=== PATIENT | male | born 1985 | race Native Hawaiian/Other Pacific Islander ===

== ENCOUNTER 2019-04-09 08:31 | Emergency (ER) | payer OTHER ==
[~2019-04-09] VITALS: Ht 177.8 cm; Wt 65.8 kg
[2019-04-09 09:21] LABS: SODIUM 136 mmol/L (136-145)
[2019-04-09 09:24] LABS: PLATELET COUNT 138 K/uL (142-355)
[2019-04-09 09:45] LABS: PARTIAL THROMBOPLASTIN TIME 24.8 SECONDS (24.5-33.6)
[2019-04-09 11:55] VITALS: BP 134/87; TEMP 97.7
== END 2019-04-09 11:55 | disposition home or self-care (01) ==
LOC: ED 08:31
PROVIDERS: Hospitalist
DX: K29.60 Other gastritis without bleeding (principal); R07.89 Other chest pain; R11.2 Nausea with vomiting, unspecified
CPT/HCPCS: 36415; 80053; 80320; 82150; 82550; 83690; 83880; 84484; 85027; 85379; 85610; 85730; 93005; 96374; 99284; J2405; Q9963

== ENCOUNTER 2019-07-30 09:55 | Emergency (ER) | payer OTHER ==
[~2019-07-30] VITALS: Ht 177.8 cm; Wt 65.8 kg
[2019-07-30 10:05] VITALS: BP 125/79; TEMP 98.8
== END 2019-07-30 10:58 | disposition home or self-care (01) ==
LOC: ED 09:55
DX: R50.9 Fever, unspecified (principal)
CPT/HCPCS: 87502; 87651; 99283

== ENCOUNTER 2019-08-10 10:42 | Emergency (ER) | payer OTHER ==
[~2019-08-10] VITALS: Ht 177.8 cm; Wt 65.8 kg
[2019-08-10 11:56] VITALS: BP 140/95; TEMP 99
== END 2019-08-10 11:57 | disposition home or self-care (01) ==
LOC: ED 10:42
DX: J11.1 Influenza due to unidentified influenza virus with other respiratory manifestations (principal); F17.210 Nicotine dependence, cigarettes, uncomplicated; Z03.818 Encounter for observation for suspected exposure to other biological agents ruled out
CPT/HCPCS: 87502; 87635; 87651; 99283; U0002

== ENCOUNTER 2019-11-14 15:26 | Emergency (ER) | payer OTHER ==
[~2019-11-14] VITALS: Ht 177.8 cm; Wt 65.8 kg
[2019-11-14 18:09] LABS: PLATELET COUNT 97 K/uL (142-355)
[2019-11-14 18:26] LABS: POTASSIUM 2.2 mmol/L (3.6-5.2)
[2019-11-14 19:20] VITALS: BP 129/85; TEMP 99.2
== END 2019-11-14 19:20 | disposition home or self-care (01) ==
LOC: ED 15:26
PROVIDERS: Family Medicine
DX: E87.6 Hypokalemia (principal); R11.2 Nausea with vomiting, unspecified
CPT/HCPCS: 36415; 80053; 82150; 83690; 85027; 96360; 99284

== ENCOUNTER 2019-12-24 10:34 | Inpatient (IN) | payer OTHER ==
[~2019-12-24] VITALS: Ht 177.8 cm; Wt 65.3 kg
[2019-12-24] VITALS (13 sets, daily range): BP systolic 95–127; BP diastolic 59–94; TEMP 98.8–102.6; Ht 177.8 cm; Wt 65.3 kg
[2019-12-24 11:24] LABS: PLATELET COUNT 172 K/uL (142-355)
[2019-12-24 11:59] LABS: POTASSIUM 2.4 mmol/L (3.6-5.2)
[2019-12-25] VITALS: BP 100/62; TEMP 98.7
[2019-12-25 04:00] VITALS: BP 120/80; TEMP 101.4
[2019-12-25 06:46] LABS: PLATELET COUNT 131 K/uL (142-355)
[2019-12-25 06:49] LABS: POTASSIUM 2.4 mmol/L (3.6-5.2)
[2019-12-25 08:00] VITALS: BP 101/73; TEMP 98.8
[2019-12-25 11:50] VITALS: BP 120/79; TEMP 98.6
[2019-12-25 16:00] VITALS: BP 126/88; TEMP 100.5
[2019-12-25 20:00] VITALS: BP 129/90; TEMP 99.2
[2019-12-26] VITALS: BP 145/93; TEMP 98.5
[2019-12-26 04:00] VITALS: BP 134/88; TEMP 99.7
[2019-12-26 05:32] LABS: PLATELET COUNT 123 K/uL (142-355)
[2019-12-26 05:35] LABS: POTASSIUM 2.7 mmol/L (3.6-5.2)
[2019-12-26 07:48] VITALS: BP 122/84; TEMP 98.74
[2019-12-26 12:00] VITALS: BP 115/86; TEMP 100.3
[2019-12-26 15:40] LABS: POTASSIUM 3.3 mmol/L (3.6-5.2)
== END 2019-12-26 17:15 | disposition home or self-care (01) | DRG 641 ==
LOC: ED 10:34 → MED/SURG 13:00
PROVIDERS: Internal Medicine Endocrinology, Diabetes & Metabolism
DX: E87.6 Hypokalemia (principal); R11.2 Nausea with vomiting, unspecified; E83.42 Hypomagnesemia; G40.409 Other generalized epilepsy and epileptic syndromes, not intractable, without status epilepticus; E87.1 Hypo-osmolality and hyponatremia; Z72.0 Tobacco use; R79.89 Other specified abnormal findings of blood chemistry; F10.10 Alcohol abuse, uncomplicated
CPT/HCPCS: 36415; 80048; 80053; 81000; 82150; 82550; 82553; 83690; 83735; 84484; 85027; 87635; 93005; 96360; 96365; 96366; 96375; 99284; G2023; J0282; J1650; J1885; J2060; J2405; J2550; J3411; J3475; J3480; J3490; U0003

== ENCOUNTER 2020-06-28 15:28 | Observation (INO) | payer OTHER ==
[~2020-06-28] VITALS: Ht 177.8 cm; Wt 62.2 kg
[~2020-06-28 15:28] MED LIST: B-1100 MG PO; MAGN400T4 PO; POTA20TA4 PO
--- NOTE | 2020-06-28 15:35 | NUR ---
PT TO ROOM 1109 VIA W/C DIRECT ADMIT FROM DR. GUEVARA'S OFFICE. PT NOTED TO HAVE EMESIS BAG WITH MODERATE AMOUNT OF CLEAR FLUID IN THE BAG. PT REPORTS BEING NAUSEATED AND THROWING UP SINCE SATURDAY MORNING. PT REPORTS ALCOHOL USE AND STATES "THE LAST TIME I DRANK WAS SATURDAY" PT ALERT AND ORIENTED X4. NAD NOTED. IV AND LABS OBTAINED AT THIS TIME.
[2020-06-28 17:02] LABS: PLATELET COUNT 171 K/uL (142-355)
[2020-06-28 17:18] LABS: SODIUM 131 mmol/L (136-145)
[2020-06-28 17:22] LABS: POTASSIUM 2.1 mmol/L (3.6-5.2)
--- NOTE | 2020-06-28 17:39 | NUR ---
CRITICAL LABS REPORTED TO DR. GUEVARA, REC'D ORDERS TO OBTAIN AMMONIA LEVEL AND CORRECT ELECTROLYTES.
[2020-06-28 18:09] VITALS: BP 118/91; TEMP 98.7; Ht 177.8 cm; Wt 62.2 kg
[2020-06-28 20:00] VITALS: BP 112/79; TEMP 98.6
[2020-06-29] VITALS (7 sets, daily range): BP systolic 95–110; BP diastolic 61–86; TEMP 98–98.7
[2020-06-29 08:56] LABS: PLATELET COUNT 111 K/uL (142-355)
--- NOTE | 2020-06-29 14:52 | NUR ---
SPOKE TO WILBERT FROM DR CAO OFFICE AT 1448. DR CAO TO CONSULT THIS AFTERNOON.
--- NOTE | 2020-06-29 20:22 | NUR ---
PT IN A HIGH FOWLERS POSITION WITH BED IN LOWEST POSITION WATCHING TV. PT WAS ENCOURAGED TO ASK QUESTIONS AT THIS TIME. PT DENIES ANY PAIN, TENDERNESS, OR DSICOMFORT AT THIS TIME.
--- NOTE | 2020-06-29 20:55 | NUR ---
PER PATIENT'S REQUEST, PROVIDED PATIENT CHICKEN SOUP X2 CANS AND JELLO X2. PATIENT EXPRESSED HIS APPRECIATION FOR SAME. PATIENT CONTINUES TO DENY ANY ABDOMINAL PAIN OR TENDERNESS.
--- NOTE | 2020-06-30 03:07 | NUR ---
PT. SITTING UP IN A HIGH-FOWLERS POSITION WATCHING A MOVIE. PT. DENIES ANY PAIN OR DISCOMFORT AT THIS TIME.
[2020-06-30 04:26] VITALS: BP 111/72; TEMP 98.7
[2020-06-30 04:30] LABS: PLATELET COUNT 77 K/uL (142-355)
[2020-06-30 04:45] LABS: POTASSIUM 2.6 mmol/L (3.6-5.2)
[2020-06-30 08:00] VITALS: BP 108/77; TEMP 98.2
--- NOTE | 2020-06-30 11:18 | NUR ---
LATE ENTRY : 06/29/[address] CAO AT BEDSIDE. TO DISCUSS SURGICAL PROCEDURE PT REFUSES TO HAVE GALL BLADDER REMOVED.
--- NOTE | 2020-06-30 11:24 | NUR ---
DR GUEVARA'S OFFICE IS WORKING ON SURGICAL CONSULT. OUT PATIENT.
[2020-06-30 12:00] VITALS: BP 109/74; TEMP 98
--- NOTE | 2020-06-30 14:30 | NUR ---
DC INSTRUCTIONS EXPLAINED TO PT WHO VERBALIZED UNDERSTANDING. 20G IV TO LW DC WITH TIP INTACT. TELE REMOVED FROM PT. UNABLE TO GET SURVEY TABLET TO WORK.
--- NOTE | 2020-06-30 14:35 | NUR ---
PT LEFT FLOOR VIA WC IN NAD. BELONGINGS SENT HOME WITH PT.
== END 2020-06-30 14:35 | disposition home or self-care (01) ==
LOC: MED/SURG 15:28
PROVIDERS: ADMIT Family Medicine; ATTEND Family Medicine
DX: E86.0 Dehydration (principal); R11.2 Nausea with vomiting, unspecified; B19.20 Unspecified viral hepatitis C without hepatic coma; E83.42 Hypomagnesemia; I47.2 Ventricular tachycardia; E87.6 Hypokalemia; M62.82 Rhabdomyolysis; F10.20 Alcohol dependence, uncomplicated; E87.2 Acidosis; K80.81 Other cholelithiasis with obstruction
CPT/HCPCS: 36415; 80053; 81000; 82140; 82150; 82550; 82553; 82746; 83605; 83690; 83735; 84100; 84443; 84484; 85027; 87040; 87522; 87635; 87902; 93005; 96365; 96366; 96367; 96375; 99220; G0378; G0379; J2405; J3411; J3475; J3480; J3490; U0003

== ENCOUNTER 2021-05-12 13:14 | Outpatient (CLI) | payer OTHER ==
[2021-05-12 14:24] LABS: POTASSIUM 3.4 mmol/L (3.6-5.2)
== END 2021-05-12 23:11 | disposition home or self-care (01) ==
LOC: US 13:14
PROVIDERS: ATTEND Nurse Practitioner Family
DX: I82.409 Acute embolism and thrombosis of unspecified deep veins of unspecified lower extremity (principal)
CPT/HCPCS: 36415; 80053; 82728; 84550; 85379; 86140

== ENCOUNTER 2022-02-16 05:20 | Emergency (ER) | payer OTHER ==
[~2022-02-16] VITALS: Ht 177.8 cm; Wt 62.1 kg
[2022-02-16 05:20] VITALS: TEMP 101.9
[2022-02-16 06:01] LABS: PLATELET COUNT 280 K/uL (142-355)
[2022-02-16 06:19] LABS: POTASSIUM 4.2 mmol/L (3.6-5.2)
[2022-02-16 10:45] VITALS: BP 113/63
== END 2022-02-16 10:45 | disposition short-term general hospital (02) ==
LOC: ED 05:25
PROVIDERS: Emergency Medicine
PROC: 0T9B70Z Drainage of Bladder with Drainage Device, Via Natural or Artificial Opening (ICD-10-PCS; principal; 2022-02-16)
DX: R56.9 Unspecified convulsions (principal); F10.20 Alcohol dependence, uncomplicated; Z11.52 Encounter for screening for COVID-19
CPT/HCPCS: 36415; 51702; 80053; 80307; 81002; 82550; 83605; 84484; 85027; 85610; 85730; 87040; 87502; 87635; 93005; 96360; 96361; 99284; J3411; J3475; J3490; U0003